=== PATIENT | male | born 1965 | race Caucasian/White ===

== ENCOUNTER 2024-12-23 15:11 | Emergency (ER) | payer OTHER, SELFPAY ==
[2024-12-23 15:26] VITALS: BP 116/83
[2024-12-23 17:45] VITALS: BP 158/89
--- NOTE | 2024-12-23 18:02 | ED.GENMED ---
History of Present Illness
General
Chief Complaint: Fall
Source: patient
Exam Limitations: none
Time Seen by Provider: 12/23/24 17:11
Nursing documentation reviewed up to this point in time: agreed with
History of Present Illness
History of Present Illness:
Patient is a 59-year-old male who reports around 12 PM he was at work on a ceiling and fell through the ceiling. He reports he landed approximate 12 feet on the ground he slid initially felt like he landed on his feet but then sit onto his butt
because he slipped on tiles. He does not believe he hit his head. He went to urgent care and had neck x-rays but they sent him here to have his neck cleared does have some soreness to his neck and complains of some bruising to his right leg. He
denies any headache ,chest pain, abdominal pain, back pain. He denies any nausea vomiting. his is not on blood thinners.
Review of Systems
Review of Systems
Allergies reviewed?: Yes
All Other Systems: ROS reviewed and negative except as documented in HPI and ROS
Constitutional: Reports no symptoms; Denies fever, fatigue or chills
EENT: Reports no symptoms
Respiratory: Reports no symptoms
Cardiac: Reports no symptoms
ABD/GI: Reports no symptoms; Denies nausea or vomiting
Musculoskeletal: Reports neck pain; Denies back pain
Skin: Reports no symptoms
Neurological: Reports no symptoms; Denies dizzy or headache
Psychiatric: Reports no symptoms
Phy Exam
General Physical Exam
General Presentation: no apparent distress
General age: appears stated age
General Skin: warm and dry
General Habitus: normal
General Mental: alert
General Hydration: appears well hydrated
Cardiovascular Exam
Cardiovascular Exam: regular rate/rhythm, no murmur and normal peripheral pulses
Pulmonary Exam
Pulmonary Exam: lungs clear and no respiratory distress
Neurological Exam
Neurological Exam: alert and oriented x3
Musculoskeletal Exam
Musculoskeletal Exam: full ROM and other (No obvious head injury on exam no bony midline cervical tenderness mildly sore to bilateral paralumbar muscles, mild bruising to right thigh, no bony tenderness; full range of motion all extremities)
Skin Exam
Skin Exam: normal color and warm/dry
Psychiatric Exam
Psychiatric Exam: normal mood/affect
Course
Orders/Labs/Results
Orders:
Orders
12/23/24 15:16
CT Cervical Spine W/o Iv Contr Urgent
Comment:
Reason For Exam: fall
12/23/24 18:[address] [CT Head W/o Iv Contrast] Urgent
Comment:
Reason For Exam: 10ft fall, neck pain
Vital Signs
Initial and Last Documented VS:
Initial Vital Signs
Temp Pulse Resp Pulse Ox
98 F 82 16 97
12/23/24 15:22 12/23/24 15:22 12/23/24 15:22 12/23/24 15:22
Last Documented Vital Signs
Temp Pulse Resp BP Pulse Ox
98 F 68 20 158/89 100
12/23/24 15:22 12/23/24 17:45 12/23/24 17:45 12/23/24 17:45 12/23/24 17:45
Candy Supervisor consulted with Physician
Candy Supervisor consulted with physician?: Yes
Name of Physician Consulted: Damaris
MDM/Problems Addressed
Differential Diagnosis Includes:
Not limited to cervical strain less likely fracture, contusion
MDM/Problems Addressed:
As documented patient is a 59-year-old male who approximately 6 hours ago was on a ceiling working and fell through. He did not believe he hit his head and is not blood thinners. He was seen at urgent care had neck x-rays but was sent here to the
ER. He does complain of soreness to the neck and some bruising and soreness to the right thigh however no other complaints. He denies any headache chest pain back pain. He is very well-appearing there is no obvious head injury on exam he has no
midline cervical tenderness. CT head and cervical spine are done and negative. He was extremities very well he has mild ecchymosis to the right thigh abdomen soft nontender no ecchymosis to abdomen no tenderness to chest or injury to chest no
tenderness or injury to back. Despite the mechanism patient is very well-appearing instructions reviewed including sprain strain contusion.
*Critical Care Note
Total Time (30-74mins, 75-104mins- exclusive of procedures): Not Applicable
ED Attending Note
-
Portions of this chart may have been created with voice recognition software.� Occasional wrong word or��sound alike� substitutions may have occurred due to the inherent limitations of voice recognition software.
Discharge Plan
Departure
Patient Disposition: Home (Routine Discharge)
Date of Disposition: 12/23/24
Time of Disposition: 18:38
Patient with high blood pressure during this ER visit?: Yes
Condition: Fair
Covid-19: Not Applicable
Discharge Problem:
Cervical strain, acute, Contusion
Instructions: Contusion (DC), Neck pain - ED discharge instructions, Muscle strain - ED discharge instructions, BLOOD PRESSURE
Referrals:
Clint Hemphill DO [Family Provider] -
Activity Restrictions/Additional Instructions:
Ice the affected areas for the next 24 hours 20 minutes at a time several times a day.
After 24 hours you may apply warm moist heat to your neck.
You may alternate between Tylenol and ibuprofen
Follow-up with your family doctor in the next several days for reevaluation of your symptoms.
return if any worsening of symptoms
Interventions
Interventions:
*Risk Screen - Suicide Last Done: 12/23/24 15:25
*Neglect/Abuse Screening Last Done: 12/23/24 15:25
*Nursing Disposition Last Done: 12/23/24 18:56
ED-Musculoskeletal Assessment Last Done: 12/23/24 17:32
ED- Neurological Assessment Last Done: 12/23/24 17:32
ED-Skin Assessment Last Done: 12/23/24 17:32
Discharge Date and Time
Discharge Date/Time: 12/23/24 18:57
Print Language: ARABIC
== END 2024-12-23 18:57 | disposition home or self-care (01) ==
LOC: EMR 15:11
PROVIDERS: EMERGENCY PHYSICIAN Emergency Medicine; FAMILY PHYSICIAN Family Medicine Sports Medicine
DX: S16.1XXA Strain of muscle, fascia and tendon at neck level, initial encounter (principal); S70.11XA Contusion of right thigh, initial encounter; W01.0XXA Fall on same level from slipping, tripping and stumbling without subsequent striking against object, initial encounter
CPT/HCPCS: 99284; 70450; 72125